=== PATIENT | female | born 1980 | race Caucasian/White ===

== ENCOUNTER 2017-03-16 15:30 | Outpatient (RCR) | payer BC ==
[2013-01-29 00:05] VITALS: BP 132/85
[~2017-03-16 15:30] MED LIST: ULTRAM50 MG PO
== END 2017-03-16 16:00 | disposition home or self-care (01) ==
LOC: PT 15:30
DX: S83.411D Sprain of medial collateral ligament of right knee, subsequent encounter (principal); X58.XXXD Exposure to other specified factors, subsequent encounter